=== PATIENT | male | born 1945 | race Caucasian/White ===

== ENCOUNTER 2020-05-18 15:25 | Inpatient (IN) | payer MEDICARE, OTHER ==
[~2020-05-18] VITALS: Ht 180.3 cm; Wt 74.8 kg
[2020-05-18] MEDS ORDERED: ACET-69 PO (15:51)
[2020-05-18] MEDS ORDERED: MEMA10TA PO (15:51)
[2020-05-18] MEDS ORDERED: BUSP10TA3 PO (15:51)
[2020-05-18] MEDS ORDERED: LISI-603 PO (15:51)
[2020-05-18] MEDS ORDERED: GABA-532 PO (15:51)
[2020-05-18] MEDS ORDERED: POLY30DR EACHEYE (15:51)
[2020-05-18] MEDS ORDERED: GALA4TAB23 PO (15:51)
[2020-05-18] MEDS ORDERED: SIMV-46 PO (15:51)
[2020-05-18] MEDS ORDERED: ACET-2605 PO (15:51)
[2020-05-18] MEDS ORDERED: MIRA25TA PO (15:51)
[2020-05-18] MEDS ORDERED: CALC100067 PO (15:51)
[2020-05-18] MEDS ORDERED: AMLO5TAB9 PO (15:51)
[2020-05-18] MEDS ORDERED: OMEP20CA15 PO (15:51)
[2020-05-18] MEDS ORDERED: VENL75TA4 PO (15:51)
[2020-05-18] MEDS ORDERED: PRAZ2CAP2 PO (15:51)
[2020-05-18] MEDS ORDERED: HYDR25TA4 PO (15:51)
[2020-05-18] MEDS ORDERED: RISP0.5T20 PO (15:51)
[2020-05-18] MEDS ORDERED: LIDOCAINE VISCUS 2% 15 ML UDC MM ONE (16:00)
[2020-05-18] MEDS ORDERED: MAG HYDROX/AL HYDROX/SIMETH 30 ML LIQUID UDC PO ONE (16:00)
[2020-05-18] MEDS ORDERED: PANTOPRAZOLE SODIUM 40 MG TABLET.DR PO ONE ×2 (16:00→16:04)
[2020-05-18] MEDS ORDERED: LIDOCAINE VISCUS 2% 15 ML UDC ONE (16:04)
[2020-05-18] MEDS ORDERED: MAG HYDROX/AL HYDROX/SIMETH 30 ML LIQUID UDC ONE (16:04)
[2020-05-18 16:05] LABS: BASOPHILS % (AUTO) 0.5 % (0.0-2.0); EOSINOPHILS # (AUTO) 0.2 K/uL (0.0-0.7); EOSINOPHILS % (AUTO) 2.7 % (0.0-7.0); HEMATOCRIT 43.4 % (36.7-47.1); HEMOGLOBIN 14.7 g/dL (12.5-16.3); LYMPHOCYTES # (AUTO) 1.6 K/uL (20.0-40.0); LYMPHOCYTES % (AUTO) 17.8 % (20.5-51.5); MEAN CORPUSCULAR HEMOGLOBIN 31.9 uug (23.8-33.4); MEAN CORPUSCULAR HGB CONC 34 g/dL (32.5-36.3); MEAN CORPUSCULAR VOLUME 94.1 fL (73.0-96.2); MONOCYTES # (AUTO) 0.6 K/uL (2.0-10.0); MONOCYTES % (AUTO) 6.8 % (0.0-11.0); NEUTROPHILS # (AUTO) 6.3 K/uL (1.8-8.9); NEUTROPHILS % (AUTO) 72.2 % (38.5-71.5); PLATELET COUNT (AUTO) 290 K/uL (152-348); RED BLOOD CELL COUNT(AUTO) 4.61 MIL/uL (4.06-5.63); WHITE BLOOD COUNT (AUTO) 8.8 K/uL (3.6-10.2)
[2020-05-18 16:06] LABS: CARBON DIOXIDE 26 mmol/L (21-32); CHLORIDE 105 mmol/L (98-107); GLUCOSE 112 mg/dL (74-106); POTASSIUM 3.6 mmol/L (3.5-5.1); UREA NITROGEN, BLOOD 15 mg/dL (7-18)
[2020-05-18 16:10] LABS: ETHANOL < 3 MG/DL (0-0)
[2020-05-18 16:12] LABS: ALANINE AMINOTRANSFERASE 24 U/L (16-63); ALKALINE PHOSPHATASE 96 U/L (50-136); ASPARTATE AMINOTRANSFERASE 15 U/L (15-37); BILIRUBIN,DIRECT 0.1 mg/dL (0.0-0.2); BILIRUBIN,TOTAL 0.4 mg/dL (0.2-1.0); TOTAL PROTEIN, SERUM 6.9 g/dL (6.4-8.2)
[2020-05-18 16:17] LABS: ACETAMINOPHEN < 2.0 ug/mL (10-30)
[2020-05-18 16:22] LABS: THYROID STIMULATING HORMONE 0.843 mIU/mL (0.358-3.740)
[2020-05-18 19:37] LABS: *BILIRUBIN,URIN NEGATIVE (NEGATIVE); *BLOOD, URINE NEGATIVE (NEGATIVE); *CLARITY,URINE CLEAR (CLEAR); *COLOR,URINE YELLOW (YELLOW); *KETONES,URINE NEGATIVE (NEGATIVE); *UROBILINOGEN,URINE 0.2 E.U./dl (NORMAL); LEUKOCYTE ESTERASE ,URINE NEGATIVE (NEGATIVE); NITRITE, URINE NEGATIVE (NEGATIVE); PH,URINE 6.5 (5.0-8.0); UGLUCOSE NEGATIVE (NEGATIVE)
[2020-05-18 19:52] LABS: *AMPHETAMINE, URINE NEGATIVE (NEGATIVE); *BARBITURATE, URINE NEGATIVE (NEGATIVE); *CANNABINOID, URINE NEGATIVE (NEGATIVE); *COCCAINE, URINE NEGATIVE (NEGATIVE); *OPIATE, URINE NEGATIVE (NEGATIVE); *PHENCYCLIDINE SCREEN,URINE NEGATIVE (NEGATIVE)
[2020-05-18] MEDS ORDERED: ZOLPIDEM 5 MG TABLET PO PRN (20:00)
[2020-05-18] MEDS ORDERED: MAGNESIUM HYDROXIDE 30 ML LIQUID UDC PO PRN (20:00)
[2020-05-18] MEDS ORDERED: MAG HYDROX/AL HYDROX/SIMETH 30 ML LIQUID UDC PO PRN (20:00)
[2020-05-18] MEDS ORDERED: LORAZEPAM 0.5 MG TABLET PO PRN (20:00)
[2020-05-18] MEDS ORDERED: BLOOD SUGAR DIAGNOSTIC 1 EACH STRIP VI ONE (20:00)
[2020-05-18] MEDS ORDERED: risperiDONE 0.25 MG TABLET PO SCH (21:00)
[2020-05-18 21:55] VITALS: BP 137/91
[2020-05-19] MEDS ORDERED: OLANZAPINE 10 MG VIAL IM ONE ×2 (00:45→00:52)
[2020-05-19 07:30] VITALS: BP 142/91
[2020-05-19] MEDS: HYDROCHLOROTHIAZIDE 25 MG TABLET PO SCH (08:36)
[2020-05-19] MEDS: AMLODIPINE 5 MG TABLET PO SCH (08:37)
[2020-05-19] MEDS: LISINOPRIL 20 MG TABLET PO SCH (08:37)
[2020-05-19] MEDS: LORAZEPAM 0.5 MG TABLET PO PRN ×2 (13:35→22:41)
[2020-05-19] MEDS: DIVALPROEX SPRINKLE 125 MG CAP.SPRINK PO SCH ×2 (13:42→16:14)
[2020-05-19 16:00] VITALS: BP 105/74
[2020-05-19] MEDS: QUETIAPINE FUMARATE 25 MG TABLET PO SCH ×2 (16:14→20:28)
[2020-05-19] MEDS ORDERED: OLANZAPINE 10 MG VIAL IM STA (18:26)
[2020-05-19] MEDS: GABAPENTIN 300 MG CAPSULE PO SCH (20:28)
[2020-05-19] MEDS: OXYBUTYNIN CHLORIDE 5 MG TABLET PO SCH (20:28)
[2020-05-19] MEDS: SIMVASTATIN 20 MG TABLET PO SCH (20:28)
[2020-05-19] MEDS: MEMANTINE HCL 10 MG TABLET PO SCH (20:28)
[2020-05-19] MEDS: PRAZOSIN HCL 1 MG CAPSULE PO SCH (20:29)
[2020-05-19 21:24] VITALS: BP 105/68
[2020-05-20 04:00] VITALS: BP 114/56
[2020-05-20] MEDS: DIVALPROEX SPRINKLE 125 MG CAP.SPRINK PO SCH ×2 (08:50→17:25)
[2020-05-20] MEDS: HYDROCHLOROTHIAZIDE 25 MG TABLET PO SCH (08:50)
[2020-05-20] MEDS: AMLODIPINE 5 MG TABLET PO SCH (08:50)
[2020-05-20] MEDS: MEMANTINE HCL 10 MG TABLET PO SCH ×2 (08:51→20:22)
[2020-05-20] MEDS: LISINOPRIL 20 MG TABLET PO SCH (08:51)
[2020-05-20] MEDS: QUETIAPINE FUMARATE 25 MG TABLET PO SCH ×3 (08:51→20:09)
[2020-05-20] MEDS: OXYBUTYNIN CHLORIDE 5 MG TABLET PO SCH ×2 (09:00→20:22)
[2020-05-20 16:37] VITALS: BP 108/81
[2020-05-20] MEDS: LORAZEPAM 0.5 MG TABLET PO PRN (19:46)
[2020-05-20] MEDS: GABAPENTIN 300 MG CAPSULE PO SCH (20:09)
[2020-05-20] MEDS: SIMVASTATIN 20 MG TABLET PO SCH (20:09)
[2020-05-20] MEDS: PRAZOSIN HCL 1 MG CAPSULE PO SCH (20:21)
[2020-05-20 20:48] VITALS: BP 105/72
[2020-05-21 07:30] VITALS: BP 105/64
[2020-05-21] MEDS: DIVALPROEX SPRINKLE 125 MG CAP.SPRINK PO SCH ×2 (09:23→16:28)
[2020-05-21] MEDS: MEMANTINE HCL 10 MG TABLET PO SCH ×2 (09:23→20:31)
[2020-05-21] MEDS: HYDROCHLOROTHIAZIDE 25 MG TABLET PO SCH (09:24)
[2020-05-21] MEDS: AMLODIPINE 5 MG TABLET PO SCH (09:24)
[2020-05-21] MEDS: QUETIAPINE FUMARATE 25 MG TABLET PO SCH ×3 (09:24→20:31)
[2020-05-21] MEDS: LISINOPRIL 20 MG TABLET PO SCH (09:25)
[2020-05-21] MEDS: OXYBUTYNIN CHLORIDE 5 MG TABLET PO SCH ×2 (09:25→20:24)
[2020-05-21 11:51] VITALS: BP 105/56
[2020-05-21] MEDS: LORAZEPAM 0.5 MG TABLET PO PRN (12:17)
[2020-05-21] MEDS: ACETAMINOPHEN 325 MG TABLET PO PRN (12:17)
[2020-05-21] MEDS ORDERED: OLANZAPINE 10 MG VIAL IM STA (19:35)
[2020-05-21 20:28] VITALS: BP 124/75
[2020-05-21] MEDS: PRAZOSIN HCL 1 MG CAPSULE PO SCH (20:30)
[2020-05-21] MEDS: GABAPENTIN 300 MG CAPSULE PO SCH (20:31)
[2020-05-21] MEDS: SIMVASTATIN 20 MG TABLET PO SCH (20:31)
[2020-05-22 07:30] VITALS: BP 95/66
[2020-05-22] MEDS: DIVALPROEX SPRINKLE 125 MG CAP.SPRINK PO SCH ×2 (08:48→16:46)
[2020-05-22] MEDS: MEMANTINE HCL 10 MG TABLET PO SCH ×2 (08:48→20:21)
[2020-05-22] MEDS: OXYBUTYNIN CHLORIDE 5 MG TABLET PO SCH ×2 (08:49→20:22)
[2020-05-22] MEDS: LISINOPRIL 20 MG TABLET PO SCH (09:00)
[2020-05-22] MEDS: HYDROCHLOROTHIAZIDE 25 MG TABLET PO SCH (09:00)
[2020-05-22] MEDS: AMLODIPINE 5 MG TABLET PO SCH (09:00)
[2020-05-22] MEDS: QUETIAPINE FUMARATE 25 MG TABLET PO SCH ×4 (09:51→20:21)
[2020-05-22] MEDS: LORAZEPAM 0.5 MG TABLET PO PRN (13:17)
[2020-05-22 16:00] VITALS: BP 104/68
[2020-05-22 20:09] VITALS: BP 134/85
[2020-05-22] MEDS: GABAPENTIN 300 MG CAPSULE PO SCH (20:21)
[2020-05-22] MEDS: SIMVASTATIN 20 MG TABLET PO SCH (20:21)
[2020-05-22] MEDS: PRAZOSIN HCL 1 MG CAPSULE PO SCH (20:22)
[2020-05-23] MEDS: LORAZEPAM 0.5 MG TABLET PO PRN ×2 (00:08→21:18)
[2020-05-23] MEDS: ACETAMINOPHEN 325 MG TABLET PO PRN (00:09)
[2020-05-23 07:30] VITALS: BP 111/76
[2020-05-23] MEDS: QUETIAPINE FUMARATE 25 MG TABLET PO SCH ×4 (08:41→20:35)
[2020-05-23] MEDS: DIVALPROEX SPRINKLE 125 MG CAP.SPRINK PO SCH ×2 (08:41→17:07)
[2020-05-23] MEDS: OXYBUTYNIN CHLORIDE 5 MG TABLET PO SCH ×2 (08:43→20:35)
[2020-05-23] MEDS: MEMANTINE HCL 10 MG TABLET PO SCH ×2 (08:43→20:35)
[2020-05-23] MEDS: LISINOPRIL 20 MG TABLET PO SCH (09:00)
[2020-05-23] MEDS: HYDROCHLOROTHIAZIDE 25 MG TABLET PO SCH (09:00)
[2020-05-23] MEDS: AMLODIPINE 5 MG TABLET PO SCH (09:00)
[2020-05-23] MEDS ORDERED: OLANZAPINE 10 MG VIAL IM ONE (13:00)
[2020-05-23 16:00] VITALS: BP 122/95
[2020-05-23 20:11] VITALS: BP 125/89
[2020-05-23] MEDS: PRAZOSIN HCL 1 MG CAPSULE PO SCH (20:34)
[2020-05-23] MEDS: SIMVASTATIN 20 MG TABLET PO SCH (20:35)
[2020-05-23] MEDS: GABAPENTIN 300 MG CAPSULE PO SCH (20:35)
[2020-05-24] MEDS: LORAZEPAM 0.5 MG TABLET PO PRN ×3 (03:10→16:13)
[2020-05-24 07:30] VITALS: BP 137/84
[2020-05-24] MEDS: AMLODIPINE 5 MG TABLET PO SCH (09:00)
[2020-05-24] MEDS: HYDROCHLOROTHIAZIDE 25 MG TABLET PO SCH (09:00)
[2020-05-24] MEDS: OXYBUTYNIN CHLORIDE 5 MG TABLET PO SCH ×2 (09:50→20:05)
[2020-05-24] MEDS: LISINOPRIL 20 MG TABLET PO SCH (09:50)
[2020-05-24] MEDS: MEMANTINE HCL 10 MG TABLET PO SCH ×2 (09:50→20:02)
[2020-05-24] MEDS: QUETIAPINE FUMARATE 25 MG TABLET PO SCH ×4 (09:50→20:02)
[2020-05-24] MEDS: DIVALPROEX SPRINKLE 125 MG CAP.SPRINK PO SCH ×2 (09:50→16:59)
[2020-05-24] MEDS: GABAPENTIN 100 MG CAPSULE PO SCH ×3 (09:50→16:59)
[2020-05-24 15:23] VITALS: BP 91/60
[2020-05-24] MEDS: SIMVASTATIN 20 MG TABLET PO SCH (20:02)
[2020-05-24] MEDS: GABAPENTIN 300 MG CAPSULE PO SCH (20:02)
[2020-05-24] MEDS: PRAZOSIN HCL 1 MG CAPSULE PO SCH (20:05)
[2020-05-24 20:35] VITALS: BP 116/82
[2020-05-25] MEDS: LORAZEPAM 0.5 MG TABLET PO PRN ×3 (00:30→22:20)
[2020-05-25 07:30] VITALS: BP 97/55
[2020-05-25] MEDS: LISINOPRIL 20 MG TABLET PO SCH (09:00)
[2020-05-25] MEDS: HYDROCHLOROTHIAZIDE 25 MG TABLET PO SCH (09:00)
[2020-05-25] MEDS: AMLODIPINE 5 MG TABLET PO SCH (09:00)
[2020-05-25] MEDS: DIVALPROEX SPRINKLE 125 MG CAP.SPRINK PO SCH ×2 (10:43→16:28)
[2020-05-25] MEDS: MEMANTINE HCL 10 MG TABLET PO SCH ×2 (10:43→20:02)
[2020-05-25] MEDS: OXYBUTYNIN CHLORIDE 5 MG TABLET PO SCH ×2 (10:43→20:04)
[2020-05-25] MEDS: GABAPENTIN 100 MG CAPSULE PO SCH ×3 (10:43→16:28)
[2020-05-25] MEDS: ACETAMINOPHEN 325 MG TABLET PO PRN (10:43)
[2020-05-25] MEDS: QUETIAPINE FUMARATE 25 MG TABLET PO SCH ×4 (10:48→20:04)
[2020-05-25 16:00] VITALS: BP 102/70
[2020-05-25 20:00] VITALS: BP 113/76
[2020-05-25] MEDS: GABAPENTIN 300 MG CAPSULE PO SCH (20:02)
[2020-05-25] MEDS: PRAZOSIN HCL 1 MG CAPSULE PO SCH (20:04)
[2020-05-25] MEDS: SIMVASTATIN 20 MG TABLET PO SCH (20:05)
[2020-05-26 07:11] LABS: BASOPHILS # (AUTO) 0.1 K/uL (0.0-8.0); BASOPHILS % (AUTO) 0.8 % (0.0-2.0); EOSINOPHILS # (AUTO) 0.5 K/uL (0.0-0.7); EOSINOPHILS % (AUTO) 7.1 % (0.0-7.0); HEMATOCRIT 43.5 % (36.7-47.1); HEMOGLOBIN 14.5 g/dL (12.5-16.3); LYMPHOCYTES # (AUTO) 1.9 K/uL (20.0-40.0); LYMPHOCYTES % (AUTO) 26.1 % (20.5-51.5); MEAN CORPUSCULAR HEMOGLOBIN 31.5 uug (23.8-33.4); MEAN CORPUSCULAR HGB CONC 33 g/dL (32.5-36.3); MEAN CORPUSCULAR VOLUME 94.7 fL (73.0-96.2); MONOCYTES # (AUTO) 0.6 K/uL (2.0-10.0); MONOCYTES % (AUTO) 8.8 % (0.0-11.0); NEUTROPHILS # (AUTO) 4.2 K/uL (1.8-8.9); NEUTROPHILS % (AUTO) 57.2 % (38.5-71.5); PLATELET COUNT (AUTO) 223 K/uL (152-348); WHITE BLOOD COUNT (AUTO) 7.3 K/uL (3.6-10.2)
[2020-05-26 07:28] LABS: BILIRUBIN,TOTAL 0.5 mg/dL (0.2-1.0); CREATININE 1.2 mg/dL (0.6-1.3); POTASSIUM 3.6 mmol/L (3.5-5.1); TOTAL PROTEIN, SERUM 6.4 g/dL (6.4-8.2)
[2020-05-26 07:30] VITALS: BP 115/73
[2020-05-26] MEDS: DIVALPROEX SPRINKLE 125 MG CAP.SPRINK PO SCH ×2 (09:38→17:53)
[2020-05-26] MEDS: AMLODIPINE 5 MG TABLET PO SCH (09:39)
[2020-05-26] MEDS: GABAPENTIN 100 MG CAPSULE PO SCH ×3 (09:39→17:53)
[2020-05-26] MEDS: OXYBUTYNIN CHLORIDE 5 MG TABLET PO SCH ×2 (09:41→20:04)
[2020-05-26] MEDS: HYDROCHLOROTHIAZIDE 25 MG TABLET PO SCH (09:41)
[2020-05-26] MEDS: MEMANTINE HCL 10 MG TABLET PO SCH ×2 (09:42→20:06)
[2020-05-26] MEDS: LISINOPRIL 20 MG TABLET PO SCH (09:44)
[2020-05-26] MEDS: QUETIAPINE FUMARATE 25 MG TABLET PO SCH ×4 (09:44→20:04)
[2020-05-26 16:08] VITALS: BP 90/73
[2020-05-26] MEDS: SIMVASTATIN 20 MG TABLET PO SCH (20:04)
[2020-05-26] MEDS: GABAPENTIN 300 MG CAPSULE PO SCH (20:04)
[2020-05-26] MEDS: PRAZOSIN HCL 1 MG CAPSULE PO SCH (20:06)
[2020-05-26] MEDS: LORAZEPAM 0.5 MG TABLET PO PRN (20:08)
[2020-05-26 20:11] VITALS: BP 109/58
[2020-05-27 07:30] VITALS: BP 113/78
[2020-05-27] MEDS: LORAZEPAM 0.5 MG TABLET PO PRN ×2 (08:50→14:40)
[2020-05-27] MEDS: MEMANTINE HCL 10 MG TABLET PO SCH ×2 (08:56→21:12)
[2020-05-27] MEDS: DIVALPROEX SPRINKLE 125 MG CAP.SPRINK PO SCH ×3 (08:57→17:04)
[2020-05-27] MEDS: GABAPENTIN 100 MG CAPSULE PO SCH ×3 (08:57→17:04)
[2020-05-27] MEDS: OXYBUTYNIN CHLORIDE 5 MG TABLET PO SCH ×2 (08:57→21:12)
[2020-05-27] MEDS: QUETIAPINE FUMARATE 25 MG TABLET PO SCH ×4 (08:57→21:11)
[2020-05-27] MEDS: AMLODIPINE 5 MG TABLET PO SCH (08:58)
[2020-05-27] MEDS: LISINOPRIL 20 MG TABLET PO SCH (08:58)
[2020-05-27] MEDS: HYDROCHLOROTHIAZIDE 25 MG TABLET PO SCH (08:59)
[2020-05-27] MEDS: ACETAMINOPHEN 325 MG TABLET PO PRN ×2 (12:33→21:12)
[2020-05-27 16:00] VITALS: BP 101/62
[2020-05-27 20:00] VITALS: BP 115/60
[2020-05-27] MEDS: SIMVASTATIN 20 MG TABLET PO SCH (21:11)
[2020-05-27] MEDS: PRAZOSIN HCL 1 MG CAPSULE PO SCH (21:12)
[2020-05-27] MEDS: GABAPENTIN 300 MG CAPSULE PO SCH (21:12)
[2020-05-28 07:54] VITALS: BP 99/68
[2020-05-28] MEDS: GABAPENTIN 100 MG CAPSULE PO SCH ×3 (08:28→16:58)
[2020-05-28] MEDS: QUETIAPINE FUMARATE 25 MG TABLET PO SCH ×4 (08:28→20:57)
[2020-05-28] MEDS: DIVALPROEX SPRINKLE 125 MG CAP.SPRINK PO SCH ×3 (08:28→16:58)
[2020-05-28] MEDS: OXYBUTYNIN CHLORIDE 5 MG TABLET PO SCH ×2 (08:29→20:57)
[2020-05-28] MEDS: HYDROCHLOROTHIAZIDE 25 MG TABLET PO SCH (08:30)
[2020-05-28] MEDS: MEMANTINE HCL 10 MG TABLET PO SCH ×2 (08:30→20:56)
[2020-05-28] MEDS: AMLODIPINE 5 MG TABLET PO SCH (08:31)
[2020-05-28] MEDS: LISINOPRIL 20 MG TABLET PO SCH (08:31)
[2020-05-28] MEDS: LORAZEPAM 0.5 MG TABLET PO PRN ×2 (08:42→20:57)
[2020-05-28] MEDS: ACETAMINOPHEN 325 MG TABLET PO PRN (11:38)
[2020-05-28 15:11] VITALS: BP 117/79
[2020-05-28 20:38] VITALS: BP 112/70
[2020-05-28] MEDS: PRAZOSIN HCL 1 MG CAPSULE PO SCH (20:56)
[2020-05-28] MEDS: GABAPENTIN 300 MG CAPSULE PO SCH (20:57)
[2020-05-28] MEDS: SIMVASTATIN 20 MG TABLET PO SCH (20:57)
[2020-05-29 07:30] VITALS: BP 117/77
[2020-05-29] MEDS: GABAPENTIN 100 MG CAPSULE PO SCH ×3 (08:42→17:11)
[2020-05-29] MEDS: MEMANTINE HCL 10 MG TABLET PO SCH ×2 (08:43→20:24)
[2020-05-29] MEDS: QUETIAPINE FUMARATE 25 MG TABLET PO SCH ×4 (08:43→20:24)
[2020-05-29] MEDS: OXYBUTYNIN CHLORIDE 5 MG TABLET PO SCH ×2 (08:44→20:24)
[2020-05-29] MEDS: DIVALPROEX SPRINKLE 125 MG CAP.SPRINK PO SCH ×3 (08:44→17:11)
[2020-05-29] MEDS: AMLODIPINE 5 MG TABLET PO SCH (09:00)
[2020-05-29] MEDS: LISINOPRIL 20 MG TABLET PO SCH (09:00)
[2020-05-29] MEDS: HYDROCHLOROTHIAZIDE 25 MG TABLET PO SCH (12:12)
[2020-05-29 16:00] VITALS: BP 109/74
[2020-05-29 20:17] VITALS: BP 101/66
[2020-05-29] MEDS: SIMVASTATIN 20 MG TABLET PO SCH (20:24)
[2020-05-29] MEDS: GABAPENTIN 300 MG CAPSULE PO SCH (20:24)
[2020-05-29] MEDS: PRAZOSIN HCL 1 MG CAPSULE PO SCH (20:25)
[2020-05-29] MEDS: LORAZEPAM 0.5 MG TABLET PO PRN (22:01)
[2020-05-30 07:30] VITALS: BP 150/80
[2020-05-30] MEDS: DIVALPROEX SPRINKLE 125 MG CAP.SPRINK PO SCH ×3 (08:56→17:15)
[2020-05-30] MEDS: QUETIAPINE FUMARATE 25 MG TABLET PO SCH ×4 (08:56→20:02)
[2020-05-30] MEDS: GABAPENTIN 100 MG CAPSULE PO SCH ×3 (08:57→17:15)
[2020-05-30] MEDS: AMLODIPINE 5 MG TABLET PO SCH (08:57)
[2020-05-30] MEDS: MEMANTINE HCL 10 MG TABLET PO SCH ×2 (08:57→20:03)
[2020-05-30] MEDS: OXYBUTYNIN CHLORIDE 5 MG TABLET PO SCH ×2 (08:57→20:02)
[2020-05-30] MEDS: HYDROCHLOROTHIAZIDE 25 MG TABLET PO SCH (08:57)
[2020-05-30] MEDS: LISINOPRIL 20 MG TABLET PO SCH (08:58)
[2020-05-30 15:21] VITALS: BP 113/65
[2020-05-30] MEDS: SIMVASTATIN 20 MG TABLET PO SCH (20:02)
[2020-05-30] MEDS: GABAPENTIN 300 MG CAPSULE PO SCH (20:02)
[2020-05-30] MEDS: PRAZOSIN HCL 1 MG CAPSULE PO SCH (20:05)
[2020-05-30 20:38] VITALS: BP 109/66
[2020-05-30] MEDS: LORAZEPAM 0.5 MG TABLET PO PRN (21:38)
[2020-05-31 07:30] VITALS: BP 117/84
[2020-05-31] MEDS: AMLODIPINE 5 MG TABLET PO SCH (08:35)
[2020-05-31] MEDS: DIVALPROEX SPRINKLE 125 MG CAP.SPRINK PO SCH ×2 (08:35→12:25)
[2020-05-31] MEDS: LISINOPRIL 20 MG TABLET PO SCH (08:35)
[2020-05-31] MEDS: GABAPENTIN 100 MG CAPSULE PO SCH ×2 (08:35→12:25)
[2020-05-31] MEDS: MEMANTINE HCL 10 MG TABLET PO SCH (08:36)
[2020-05-31] MEDS: HYDROCHLOROTHIAZIDE 25 MG TABLET PO SCH (08:36)
[2020-05-31] MEDS: QUETIAPINE FUMARATE 25 MG TABLET PO SCH ×2 (08:36→12:25)
[2020-05-31] MEDS: OXYBUTYNIN CHLORIDE 5 MG TABLET PO SCH (08:36)
[2020-05-31] MEDS: LORAZEPAM 0.5 MG TABLET PO PRN (11:44)
[2020-05-31 15:24] VITALS: BP 100/51
== END 2020-05-31 16:00 | DRG 885 ==
LOC: ER 15:35 → GPSOV3 19:27 → GPS 05-20 12:24
PROVIDERS: ADMIT Psychiatry & Neurology Psychiatry; ATTEND Hospitalist
DX: F29 Unspecified psychosis not due to a substance or known physiological condition (principal); E44.1 Mild protein-calorie malnutrition; F23 Brief psychotic disorder; F03.91 Unspecified dementia, unspecified severity, with behavioral disturbance; F43.10 Post-traumatic stress disorder, unspecified; I10 Essential (primary) hypertension; I48.91 Unspecified atrial fibrillation; K44.9 Diaphragmatic hernia without obstruction or gangrene; F31.9 Bipolar disorder, unspecified; E88.09 Other disorders of plasma-protein metabolism, not elsewhere classified; Z68.23 Body mass index [BMI] 23.0-23.9, adult
CPT/HCPCS: 36415; 70030-TC; 71045; 80164; 80307; 80329; 83690; 84443; 85025; 85730; 87086; 93005; A4663; G0480; G0480-TC; J2358; U0003-CS